=== PATIENT | female | born 1970 | race Caucasian/White ===

== ENCOUNTER 2018-03-21 07:26 | Inpatient (IN) | payer MEDICAID ==
[~2018-03-21] VITALS: Ht 157.5 cm; Wt 68.9 kg
[2018-03-21] MEDS ORDERED: ASPIRIN 325MG TABLET PO ONE (12:00)
[2018-03-21 12:18] LABS: BASOPHILS % 0.4 % (0.0-2.0); HEMATOCRIT. 39.7 % (36.0-48.0); HEMOGLOBIN. 13.4 g/dL (12.0-16.0); MEAN CORPUSCULAR HEMOGLOBIN 29.5 pg (28.0-32.0); MEAN CORPUSCULAR VOLUME 87.5 fL (81.0-99.0); NEUTROPHILS % 63.6 % (40.0-76.0); PLATELET 194 x1000/uL (130-400); RED BLOOD CELL COUNT 4.53 mill/uL (4.2-5.4); RED CELL DISTRIBUTION WIDTH 12.5 % (11.6-14.6)
[2018-03-21 12:21] LABS: CHLORIDE 107 mEq/L (98-107)
[2018-03-21 12:28] LABS: PARTIAL THROMBOPLASTIN TIME 26.4 sec (23.4-31.0); PROTHROMBIN TIME 10.1 sec (9.1-11.1)
[2018-03-21 14:02] LABS: CLARITY URINE CLEAR (CLEAR); COLOR URINE YELLOW (YELLOW); KETONES URINE NEGATIVE (NEGATIVE); LEUKOCYTE ESTERASE URINE NEGATIVE (NEGATIVE); NITRITE URINE NEGATIVE (NEGATIVE); OCCULT BLOOD URINE 1+ (NEGATIVE); PH URINE 5.5 (4.5-8.0); PROTEIN URINE NEGATIVE (NEGATIVE); SPECIFIC GRAVITY URINE 1.018 (1.005-1.030); UROBILINOGEN URINE 0.2 E.U./dL (0.2-1.0)
[2018-03-21 14:38] LABS: *AMPHETAMINES SCREEN URINE NEGATIVE (NEGATIVE); *BARBITURATES SCREEN URINE NEGATIVE (NEGATIVE); *BENZODIAZEPINES SCREEN URINE NEGATIVE (NEGATIVE); *COCAINE SCREEN URINE NEGATIVE (NEGATIVE); METHADONE URINE SCREEN NEGATIVE (NEGATIVE); OPIATES URINE SCREEN NEGATIVE (NEGATIVE)
[2018-03-21 14:39] LABS: CANNABINOID URINE SCREEN NEGATIVE (NEGATIVE); PHENCYCLIDINE URINE SCREEN NEGATIVE (NEGATIVE)
[2018-03-21] MEDS ORDERED: DOCUSATE SODIUM 100MG CAPSULE PO PRN (19:15)
[2018-03-21] MEDS ORDERED: CLONIDINE 0.1MG TABLET PO PRN (19:15)
[2018-03-21] MEDS ORDERED: MAGNESIUM/ALUMINUM HYDROXIDE/SIMETHICONE 30ML UDC PO PRN (19:15)
[2018-03-21] MEDS ORDERED: ACETAMINOPHEN 325MG TABLET PO PRN (19:15)
[2018-03-21 20:00] VITALS: BP 101/58
[2018-03-22] VITALS: BP 103/50
[2018-03-22 04:00] VITALS: BP 103/54
[2018-03-22 07:06] LABS: CHLORIDE 106 mEq/L (98-107)
[2018-03-22 07:24] LABS: BASOPHILS % 0.3 % (0.0-2.0); HEMATOCRIT. 38.9 % (36.0-48.0); LYMPHOCYTES % 35.5 % (20.0-50.0); MEAN CORPUSCULAR HEMOGLOBIN 29.4 pg (28.0-32.0); MEAN CORPUSCULAR VOLUME 87.7 fL (81.0-99.0); MEAN PLATELET VOLUME 9.7 fl (7.4-10.4); MONOCYTES % 7.1 % (2.0-8.0); NEUTROPHILS % 57.1 % (40.0-76.0); PLATELET 186 x1000/uL (130-400); RED BLOOD CELL COUNT 4.43 mill/uL (4.2-5.4); RED CELL DISTRIBUTION WIDTH 12.2 % (11.6-14.6)
[2018-03-22 07:24] LABS: LDL CHOLESTEROL 124 mg/dL (5-100)
[2018-03-22 07:27] LABS: HDL CHOLESTEROL 57 mg/dL (40-59); T4 FREE 1.01 ng/dL (0.76-1.46)
[2018-03-22] MEDS ORDERED: PNEUMOCOCCAL 23-VAL P-SAC VAC 0.5 ML IM ONE (08:00)
[2018-03-22 08:03] VITALS: BP 112/62
[2018-03-22] MEDS ORDERED: INFLUENZA VIRUS VACCINE(AFLURIA) 0.5ML SYR IM ONE (10:00)
[2018-03-22] MEDS ORDERED: LEVOTHYROXINE SODIUM 50MCG TABLET PO SCH (11:45)
[2018-03-22 12:30] VITALS: BP 117/67
[2018-03-22 13:26] VITALS: BP 117/67
== END 2018-03-22 15:08 | disposition home or self-care (01) | DRG 199 ==
LOC: EDBD 08:09 → ER 08:09 → 8WST 14:41 → EDBEDREQ 14:43 → EDBEDREQTM 14:43 → ENRESERV 17:41
PROVIDERS: ADMIT Family Medicine Adult Medicine; ATTEND Family Medicine Adult Medicine
DX: I16.0 Hypertensive urgency (principal); E03.9 Hypothyroidism, unspecified; I10 Essential (primary) hypertension; M54.30 Sciatica, unspecified side; R07.89 Other chest pain; Z88.2 Allergy status to sulfonamides; R07.9 Chest pain, unspecified
CPT/HCPCS: 36415; 71045; 80048; 80061; 80305; 83735; 83880; 84439; 84443; 84484; 93005; 93306; 93970; 99285

== ENCOUNTER 2019-04-17 22:54 | Emergency (ER) | payer MEDICAID ==
[~2019-04-17] VITALS: Ht 154.9 cm; Wt 64.0 kg
[2019-04-18] MEDS ORDERED: HYDROCODONE/ACETAMINOPHEN 5/325MG TABLET PO ONE (03:15)
[2019-04-18 03:29] VITALS: BP 108/74
== END 2019-04-18 03:30 | disposition home or self-care (01) ==
LOC: ER 22:54
DX: S86.912A Strain of unspecified muscle(s) and tendon(s) at lower leg level, left leg, initial encounter (principal); X58.XXXA Exposure to other specified factors, initial encounter; Y93.9 Activity, unspecified; Y92.9 Unspecified place or not applicable
CPT/HCPCS: 99282

== ENCOUNTER 2021-01-19 06:42 | Emergency (ER) | payer MEDICAID, OTHER ==
[~2021-01-19] VITALS: Ht 154.9 cm; Wt 68.0 kg
[2021-01-19] MEDS ORDERED: SODIUM CHLORIDE 0.9% 1,000 ML IV ONE (09:30)
[2021-01-19] MEDS ORDERED: KETOROLAC 15MG/ML VIAL IV ONE (09:30)
[2021-01-19] MEDS ORDERED: KETOROLAC 30MG/ML VIAL IV NR (09:30)
[2021-01-19 09:39] LABS: BASOPHILS % 0.4 % (0.0-2.0); HEMATOCRIT. 39.7 % (36.0-48.0); HEMOGLOBIN. 13.1 g/dL (12.0-16.0); LYMPHOCYTES % 28.7 % (20.0-50.0); MEAN CORPUSCULAR HEMOGLOBIN 28.5 pg (28.0-32.0); MEAN CORPUSCULAR VOLUME 86.2 fL (81.0-99.0); MEAN PLATELET VOLUME 9.5 fl (7.4-10.4); MONOCYTES % 6.4 % (2.0-8.0); NEUTROPHILS % 64.5 % (40.0-76.0); PLATELET 181 x1000/uL (130-400); RED CELL DISTRIBUTION WIDTH 12.8 % (11.6-14.6)
[2021-01-19 09:42] LABS: CHLORIDE 107 mEq/L (98-107)
[2021-01-19 12:03] VITALS: BP 133/66
== END 2021-01-19 12:04 | disposition home or self-care (01) ==
LOC: ER 06:55
DX: R07.89 Other chest pain (principal); M54.89 Other dorsalgia; D72.819 Decreased white blood cell count, unspecified
CPT/HCPCS: 36415; 71045; 80053; 83690; 84484; 85025; 93005; 96361; 96374; 99285; J1885; J7030